=== PATIENT | female | born 1970 | race Two or more races ===

== ENCOUNTER → 2025-04-09 | Outpatient (CLI) | payer MEDICAID, SELFPAY ==
--- NOTE | 2025-04-09 14:30 | XR_ITS ---
Examination: Pelvic ultrasound, transabdominal, complete Technique: Transabdominal ultrasound of the pelvis performed using grayscale imaging Date and time of exam: April 09, 2025, 1457 hours INDICATIONS: Pelvic pain beginning 2 months ago FINDINGS: Uterus 12.0 cm endometrial stripe 0.3 cm No uterine mass Ovaries obscured by bowel gas IMPRESSION: Limited study No uterine mass
== END | disposition home or self-care (01) ==
LOC: CDIM 14:15
PROVIDERS: PCP Family Medicine; Referring Provider Specialist; Visit Provider Specialist
DX: R10.20 Pelvic and perineal pain unspecified side (principal)
CPT/HCPCS: 76856